=== PATIENT | male | born 1945 | race American Indian/Alaskan Native ===

== ENCOUNTER 2018-12-27 11:05 | Inpatient (IN) | payer MEDICARE, OTHER ==
[2018-12-25 11:12] LABS: Basophils % (Auto) 0.7 % (0.0-1.8); Eosinophils # (Auto) 0.1 K/mm3 (0.0-0.4); Eosinophils % (Auto) 2.3 % (0.0-4.3); Hematocrit 42.6 % (35.5-45.6); Hemoglobin 14.8 gm/dl (11.8-15.2); Lymphocytes # (Auto) 1.2 K/mm3 (1.2-5.4); Lymphocytes % (Auto) 27.5 % (13.4-35.0); Mean Corpuscular HGB Conc 35 % (32-34); Mean Corpuscular Volume 95 fl (84-94); Monocytes # (Auto) 0.4 K/mm3 (0.0-0.8); Monocytes % (Auto) 9.2 % (0.0-7.3); Platelet Count 191 K/mm3 (140-440); Red Blood Count 4.48 M/mm3 (3.65-5.03); Red Cell Distribution Width 15.9 % (13.2-15.2)
--- NOTE | 2018-12-25 11:26 | Anesthesia Consultation ---
Anesthesia Consult and Med Hx Date of service: 12/27/18 - Airway Anesthetic Teeth Evaluation: Good ROM Head & Neck: Adequate Mental/Hyoid Distance: Adequate Mallampati Class: Class II Intubation Access Assessment: Good - Pre-Operative Health Status ASA Pre-Surgery Classification: ASA3 Proposed Anesthetic Plan: General - Pulmonary Hx Smoking: Yes (STOPPED 1980) Hx Respiratory Symptoms: Yes (Hx PE x 2. No complaints now) Hx Sleep Apnea: Yes (DX SLEEP APNEA WITH CPAP USE.) - Cardiovascular System Hx Hypertension: Yes (ON NATURAL MEDS (OTC)) Hx Coronary Artery Disease: No (NST 4 years ago-ok per pt) - Central Nervous System Hx Back Pain: Yes - Endocrine Hx Insulin Dependent Diabetes: Yes (PRE-diabetes) - Hematic Hx Anemia: Yes - Other Systems Hx Substance Use: Yes (CBD DROPS DAILY FOR PAIN CONTROL) Hx Cancer: No
[2018-12-25 11:29] LABS: Alanine Aminotransferase 18 units/L (7-56); Albumin 4.3 g/dL (3.9-5); BUN/Creatinine Ratio 15; Blood Urea Nitrogen 12 mg/dL (9-20); Hemolysis Index 14
[~2018-12-27 11:05] MED LIST: ANCEF/STERILE WATER 2 GM/20 ML IV NR; LACTATED RINGERS 1,000 ML IV SCH
[2018-12-27] MEDS ORDERED: VERSED IV NR (13:00)
[2018-12-27 13:03] LABS: INR 0.96 (0.87-1.13); Partial Thromboplastin Time 26.6 Sec. (24.2-36.6)
[2018-12-27] MEDS ORDERED: NACL 0.9% IR ONE ×2 (13:08)
[2018-12-27] MEDS ORDERED: DIPRIVAN 10 MG/ML IV ONE (13:23)
[2018-12-27] MEDS ORDERED: SUBLIMAZE ONE (13:23)
--- NOTE | 2018-12-27 14:39 | Consultation ---
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 He presented for an outpatient cystoscopy and TURP. Pre-operatively, he was noted with rapid atrial fibrillation prompting a cardiac consultation. Patient denies a history of arrhythmias. He denies prior cardiac history and has not had any recent cardiac evaluation. Patient reports experiencing palpitations, light headedness and feeling flushed on and off for several weeks. He denies chest pain and unusual shortness of breath. There was no syncope. Medications and Allergies Allergies Allergy/AdvReac Type Severity Reaction Status Date / Time Xhadbgy-Djs-Rsb Reductase AdvReac MUSCLE Verified 12/21/18 14:14 Inhibitor WEAKNESS Home Medications Medication Instructions Recorded Confirmed Last Taken Type Cyclobenzaprine [Flexeril 10 MG 10 mg PO PRN PRN 12/21/18 12/27/18 12/13/18 History TAB] Diclofenac 0.1% (Nf) [Voltaren 1 dose TP PRN 12/21/18 12/27/18 12/26/18 History (Nf)] Niacin [Niacin ER] 1,000 mg PO DAILY 12/21/18 12/27/18 12/26/18 History Rivaroxaban [Xarelto] 10 mg PO QDAY 12/21/18 12/27/18 12/21/18 History Furosemide [Lasix TAB] 40 mg PO PRN PRN 12/25/18 12/27/18 12/26/18 History Active Meds: Active Medications Cefazolin Sodium (Ancef/Sterile Water 2 Gm/20 Ml) 2 gm IV PREOP NR Stop: 12/27/18 23:59 Lactated Ringer's (Lactated Ringers) 1,000 mls @ 125 mls/hr IV DIRECT JUAN A Last Admin: 12/27/18 12:00 Dose: 125 mls/hr Documented by: Midazolam HCl (Versed) 2 mg IV PREOP NR Stop: 12/27/18 23:59 Last Admin: 12/27/18 13:13 Dose: 2 mg Documented by: Physical Examination Vital Signs Temp Pulse Resp BP Pulse Ox 97.8 F 62 20 153/72 100 12/25/18 10:59 12/25/18 10:59 12/25/18 10:59 12/25/18 10:59 12/25/18 10:59 General appearance: no acute distress HEENT: Positive: PERRL Neck: Positive: trachea midline Cardiac: Positive: Reg Rate and Rhythm Lungs: Positive: Decreased Breath Sounds Neuro: Positive: Grossly Intact Extremities: Absent: edema Results 12/25/18 10:30 12/25/18 10:30 Coagulation 12/27/18 Range/Units 12:34 PT 13.4 (12.2-14.9) Sec. INR 0.96 (0.87-1.13) APTT 26.6 (24.2-36.6) Sec. Assessment and Plan New onset Afib Hypertension Hx of DVT/PE on xarelto as an outpatient Hx of BPH Recommendations: Admit to telemetry. Amiodarone and Cardizem for management for paroxysmal atrial fibrillation. Resume Xarelto. Check TSH and magnesium. Echocardiogram for LVEF assessment.
--- NOTE | 2018-12-27 15:02 | Event Note ---
Date: 12/27/18 prior to surgery heart moniors revealed abnormal rate per anesthesia, case cancelled & cards consulted
[2018-12-27] MEDS ORDERED: TYLENOL PO PRN (15:21)
[2018-12-27] MEDS ORDERED: ZOFRAN IV PRN (15:21)
[2018-12-27] MEDS ORDERED: SODIUM CHLORIDE FLUSH SYRINGE 10 ML IV PRN (15:21)
[2018-12-27] MEDS ORDERED: PROVENTIL IH PRN (15:21)
[2018-12-27] MEDS ORDERED: CORDARONE 150 MG in D5W 97 ML IV ONE (15:25)
[2018-12-27] MEDS ORDERED: FLEXERIL PO PRN (15:26)
--- NOTE | 2018-12-27 15:29 | History and Physical Report ---
History of Present Illness Chief complaint: Heart beating fast History of present illness: 73 YO Male with HTN, DVT/PE on Therapeutic Anticoagulation, BPH presents for elective Cysto/Turp by Urology service. Pt was undergoing preop evaluation and was found to have new onset Atrial Fib with RVR. Pt seen and evaluated upon arrival to his room. Pt acknowledges intermittent palpitations which are associated with episodes of dizziness. Pt denies fever, chills, CP, NVD, Trauma, Skin rash, hematuria, BRBPR, productive cough, or recent ill contacts. No reported nursing events. Cardiology consulted. Past History Past Medical History: DVT, hypertension, pulmonary embolism Social history: single. denies: smoking, alcohol abuse, prescription drug abuse Family history: hypertension Medications and Allergies Allergies Allergy/AdvReac Type Severity Reaction Status Date / Time Hjubnak-Utc-Ccj Reductase AdvReac MUSCLE Verified 12/21/18 14:14 Inhibitor WEAKNESS Home Medications Medication Instructions Recorded Confirmed Last Taken Type Cyclobenzaprine [Flexeril 10 MG 10 mg PO PRN PRN 12/21/18 12/27/18 12/13/18 History TAB] Diclofenac 0.1% (Nf) [Voltaren 1 dose TP PRN 12/21/18 12/27/18 12/26/18 History (Nf)] Niacin [Niacin ER] 1,000 mg PO DAILY 12/21/18 12/27/18 12/26/18 History Rivaroxaban [Xarelto] 10 mg PO QDAY 12/21/18 12/27/18 12/21/18 History Furosemide [Lasix TAB] 40 mg PO PRN PRN 12/25/18 12/27/18 12/26/18 History Active Meds: Active Medications Acetaminophen (Tylenol) 650 mg PO Q4H PRN PRN Reason: Pain MILD(1-3)/Fever >100.5/SORIA Albuterol (Proventil) 2.5 mg IH Q4HRT PRN PRN Reason: Shortness Of Breath Amiodarone HCl (Cordarone) 200 mg PO BID JUAN A Cefazolin Sodium (Ancef/Sterile Water 2 Gm/20 Ml) 2 gm IV PREOP NR Stop: 12/27/18 23:59 Cyclobenzaprine HCl (Flexeril) 10 mg PO PRN PRN PRN Reason: Muscle Spasm Diltiazem HCl (Cardizem) 30 mg PO Q6HR [facility] Lactated Ringer's (Lactated Ringers) 1,000 mls @ 125 mls/hr IV DIRECT JUAN A Last Admin: 12/27/18 12:00 Dose: 125 mls/hr Documented by: Amiodarone HCl 150 mg/ (Dextrose) 100 mls @ 600 mls/hr IV ONCE ONE Stop: 12/27/18 15:34 Midazolam HCl (Versed) 2 mg IV PREOP NR Stop: 12/27/18 23:59 Last Admin: 12/27/18 13:13 Dose: 2 mg Documented by: Miscellaneous Medication (Diclofenac 0.1% (Nf)) 1 dose TP PRN JUAN A Miscellaneous Medication (Niacin [Niacin Er]) 1,000 mg PO DAILY [facility] Ondansetron HCl (Zofran) 4 mg IV Q8H PRN PRN Reason: Nausea And Vomiting Rivaroxaban (Xarelto) 10 mg PO QDAY JUAN A; Protocol Rivaroxaban (Xarelto) 10 mg PO QDAY JUAN A; Protocol Sodium Chloride (Sodium Chloride Flush Syringe 10 Ml) 10 ml IV BID JUAN A Sodium Chloride (Sodium Chloride Flush Syringe 10 Ml) 10 ml IV PRN PRN PRN Reason: LINE FLUSH Review of Systems Constitutional: no weight loss, no weight gain, no fever, no chills Ears, nose, mouth and throat: no ear pain, no ear discharge, no tinnitis, no decreased hearing, no nose pain Cardiovascular: palpitations, rapid/irregular heart beat, no chest pain, no orthopnea, no edema, no syncope Respiratory: no cough, no cough with sputum, no excessive sputum, no hemoptysis Gastrointestinal: no abdominal pain, no nausea, no vomiting, no diarrhea Genitourinary Male: no hematuria, no flank pain, no discharge, no urinary frequency, no urinary hesitancy Rectal: no pain, no incontinence, no bleeding Musculoskeletal: no neck stiffness, no neck pain, no shooting arm pain, no arm numbness/tingling Integumentary: no rash, no pruritis, no redness, no sores, no wounds Neurological: no head injury, no transient paralysis, no paralysis, no weakness, no parathesias, no numbness Psychiatric: no anxiety, no memory loss, no change in sleep habits, no sleep disturbances, no insomnia, no hypersomnia Endocrine: no cold intolerance, no heat intolerance, no polyphagia, no polydipsia, no polyuria Hematologic/Lymphatic: no easy bruising, no easy bleeding Allergic/Immunologic: no urticaria, no allergic rhinitis, no wheezing Exam - Constitutional Vitals: Temp Pulse Resp BP Pulse Ox 98.6 F 68 20 148/82 100 12/27/18 11:28 12/27/18 11:28 12/27/18 11:28 12/27/18 11:28 12/27/18 11:28 General appearance: Present: mild distress - EENT Eyes: Present: PERRL ENT: hearing intact, clear oral mucosa - Neck Neck: Present: supple, normal ROM - Respiratory Respiratory effort: normal Respiratory: bilateral: CTA - Cardiovascular Heart Sounds: Present: S1 & S2. Absent: rub, click - Extremities Extremities: pulses symmetrical, No edema Peripheral Pulses: within normal limits - Abdominal General gastrointestinal: Present: soft, non-tender, non-distended, normal bowel sounds Male genitourinary: Present: normal - Integumentary Integumentary: Present: clear, warm, dry - Musculoskeletal Musculoskeletal: gait normal, strength equal bilaterally - Psychiatric Psychiatric: appropriate mood/affect, intact judgment & insight - Neurologic Neurologic: CNII-XII intact, moves all extremities Results - Labs CBC & Chem 7: 12/27/18 17:41 12/27/18 17:41 Assessment and Plan - Patient Problems (1) Atrial fibrillation with rapid ventricular response Current Visit: Yes Status: Acute Plan to address problem: Admit to telemetry, cardiology consulted in ED, continue therapeutic anticoagulation, amiodarone bolus, cardizem TID as per cardiology request, thyroid panel, magnesium level, bmp. (2) Diastolic CHF Current Visit: Yes Status: Acute Qualifiers: Heart failure chronicity: acute Qualified Code(s): I50.31 - Acute diastolic (congestive) heart failure Plan to address problem: Admit to telemetry, thyroid panel, magnesium level, strict I/O, daily weight, Echo, cardiology consulted in ED, afterload reduction. (3) HTN (hypertension) Current Visit: Yes Status: Acute Qualifiers: Hypertension type: essential hypertension Qualified Code(s): I10 - Essential (primary) hypertension Plan to address problem: Monitor BP q shift, continue medical management. (4) History of DVT (deep vein thrombosis) Current Visit: Yes Status: Acute Plan to address problem: continue therapeutic anticoagulation. (5) DVT prophylaxis Current Visit: Yes Status: Acute Plan to address problem: SCD to BLE while in bed, continue therapeutic anticoagulation.
[2018-12-27] MEDS ORDERED: DICLOFENAC 0.1% TP SCH (15:30)
[2018-12-27 18:00] LABS: Basophils % (Auto) 0.4 % (0.0-1.8); Eosinophils # (Auto) 0.1 K/mm3 (0.0-0.4); Hematocrit 39.9 % (35.5-45.6); Hemoglobin 13.6 gm/dl (11.8-15.2); Lymphocytes # (Auto) 1.3 K/mm3 (1.2-5.4); Lymphocytes % (Auto) 27.6 % (13.4-35.0); Mean Corpuscular HGB Conc 34 % (32-34); Mean Corpuscular Volume 96 fl (84-94); Monocytes # (Auto) 0.4 K/mm3 (0.0-0.8); Monocytes % (Auto) 9.5 % (0.0-7.3); Platelet Count 171 K/mm3 (140-440); Red Blood Count 4.17 M/mm3 (3.65-5.03); Red Cell Distribution Width 15.4 % (13.2-15.2)
[2018-12-27] MEDS: CARDIZEM PO SCH ×3 (18:25→23:50)
[2018-12-27 18:38] LABS: Alanine Aminotransferase 17 units/L (7-56); Albumin 3.8 g/dL (3.9-5); BUN/Creatinine Ratio 14; Blood Urea Nitrogen 10 mg/dL (9-20); Hemolysis Index 4
[2018-12-27 19:11] LABS: Free T4 (Free Thyroxine) 1.05 ng/dL (0.76-1.46)
[2018-12-27] MEDS: CORDARONE PO SCH (22:30)
[2018-12-27] MEDS: SODIUM CHLORIDE FLUSH SYRINGE 10 ML IV SCH (22:35)
[2018-12-28] MEDS: CARDIZEM PO SCH (06:10)
[2018-12-28 08:25] LABS: BUN/Creatinine Ratio 13; Blood Urea Nitrogen 9 mg/dL (9-20); Hemolysis Index 10
--- NOTE | 2018-12-28 09:42 | Progress Note ---
Assessment and Plan New onset Afib currently in sinus rhythm; on amiodarone and diltiazem normal TSH Hypertension Hx of DVT/PE on xarelto as an outpatient Hx of BPH Echocardiogram results pending Subjective Date of service: 12/28/18 Interval history: Sinus bradycardia on telemetry. Periods of sinus bradycardia overnight. Patient remained asymptomatic. Objective Vital Signs Temp Pulse Resp BP Pulse Ox 12/28/18 07:46 97.8 F 62 20 127/82 98 12/28/18 06:10 54 L 12/28/18 04:38 97.6 F 50 L 20 130/54 99 12/28/18 04:00 50 L 12/27/18 23:50 55 L 116/50 12/27/18 23:43 97.9 F 54 L 20 116/52 98 12/27/18 22:00 99 12/27/18 20:34 55 L 12/27/18 20:16 98.1 F 55 L 20 116/50 99 12/27/18 17:00 98.1 F 75 16 133/81 99 12/27/18 15:00 74 16 123/66 99 12/27/18 14:30 69 16 128/73 99 12/27/18 14:00 98.0 F 101 H 17 134/70 97 12/27/18 11:28 98.6 F 68 20 148/82 100 12/27/18 11:25 98.6 F 68 20 148/82 100 - Physical Examination General: No Apparent Distress HEENT: Positive: PERRL Neck: Positive: trachea midline Cardiac: Positive: Reg Rate and Rhythm Neuro: Positive: Grossly Intact Extremities: Absent: edema - Labs and Meds Cardiac Enzymes 12/27/18 Range/Units 17:41 AST 17 (5-40) units/L Coagulation 12/27/18 Range/Units 12:34 PT 13.4 (12.2-14.9) Sec. INR 0.96 (0.87-1.13) APTT 26.6 (24.2-36.6) Sec. CBC 12/27/18 Range/Units 17:41 WBC 4.6 (4.5-11.0) K/mm3 RBC 4.17 (3.65-5.03) M/mm3 Hgb 13.6 (11.8-15.2) gm/dl Hct 39.9 (35.5-45.6) % Plt Count 171 (140-440) K/mm3 Lymph # 1.3 (1.2-5.4) K/mm3 Maury # 0.4 (0.0-0.8) K/mm3 Eos # 0.1 (0.0-0.4) K/mm3 Baso # 0.0 (0.0-0.1) K/mm3 Comprehensive Metabolic Panel 12/27/18 12/28/18 Range/Units 17:41 06:58 Sodium 145 142 (137-145) mmol/L Potassium 4.6 4.2 (3.6-5.0) mmol/L Chloride 107.5 H 106.3 (98-107) mmol/L Carbon Dioxide 26 27 (22-30) mmol/L BUN 10 9 (9-20) mg/dL Creatinine 0.7 L 0.7 L (0.8-1.5) mg/dL Glucose 108 H 99 (75-100) mg/dL Calcium 10.0 9.0 (8.4-10.2) mg/dL AST 17 (5-40) units/L ALT 17 (7-56) units/L Alkaline Phosphatase 70 (35-129) units/L Total Protein 6.7 (6.3-8.2) g/dL Albumin 3.8 L (3.9-5) g/dL
[2018-12-28] MEDS: CORDARONE PO SCH (09:50)
[2018-12-28] MEDS: SODIUM CHLORIDE FLUSH SYRINGE 10 ML IV SCH (09:54)
[2018-12-28] MEDS ORDERED: NIACIN 1000 MG PO SCH (10:00)
[2018-12-28] MEDS ORDERED: XARELTO PO SCH ×2 (10:00)
[2018-12-28] MEDS ORDERED: NIASPAN ER PO SCH (10:00)
[2018-12-28] MEDS ORDERED: COLACE PO SCH (13:00)
[2018-12-28] MEDS ORDERED: MIRALAX 3350 PO SCH (13:00)
--- NOTE | 2018-12-28 13:32 | Discharge Summary ---
Providers - Providers Date of Admission: 12/27/18 15:21 Date of discharge: 12/28/18 Attending physician: TIFFANY LAUREN 12/27/18 15:28 Consult to Cardiology [CONS] Routine Consulting Provider: BLANCO BENNETT Reason For Exam: chf/a fib Primary care physician: GERSON SANTILLAN Hospitalization Reason for admission: palpitation Pertinent studies: 2d EF 55-60% Hospital course: Brief history: 73 YO Male with HTN, DVT/PE on Therapeutic Anticoagulation, BPH presents for elective Cysto/Turp by Urology service. Pt was undergoing preop evaluation and was found to have new onset Atrial Fib with RVR. Pt seen and evaluated upon arrival to his room. Pt acknowledges intermittent palpitations which are associated with episodes of dizziness. Cardiology consulted in the ER, he was placed on Cardizem and amiodarone, and admitted for further evaluation and management. Discharge diagnosis and management New onset Afib - Placed on Cardizem and amiodarone drip - Now converted to normal sinus rhythm, patient will be discharged with amiodarone po and will continue Xarelto per cardiology recommendation - He'll follow-up with cardiology as outpatient Hypertension, currently stable on current medications Hx of DVT/PE - on xarelto as an outpatient Hx of BPH - Plan for discharge as an outpatient, has outpatient urologic follow-up- Hospitalists physical: GENERAL: well-developed and well-nourished male lying on bed appeared to be in no discomfort. HEENT: Normocephalic. Atraumatic. No conjunctival congestion or icterus. Patient has moist mucous membranes. NECK: Supple. Trachea midline. CHEST/LUNGS: Clear to auscultated bilaterally, breathing nonlabored. No wheezes crackles or rhonchi. HEART/CARDIOVASCULAR: Regular in rate and rhythm. S1 and S2 positive. ABDOMEN: Abdomen is soft, nontender. Patient has normal bowel sounds. SKIN: There is no rash. Warm and dry. NEURO: No focal motor deficit. Follows command. MUSCULOSKELETAL: No joint effusion or tenderness. EXTRIMITY: No edema, no cyanosis or clubbing. PSYCH: Cooperative. Disposition: - TO HOME OR SELFCARE Time spent for discharge: 35 minutes Core Measure Documentation - Palliative Care Palliative Care/ Comfort Measures: Not Applicable - Core Measures Any of the following diagnoses?: none Exam - Constitutional Vitals: Temp Pulse Resp BP Pulse Ox 97.8 F 79 17 127/82 98 12/28/18 07:46 12/28/18 11:30 12/28/18 10:00 12/28/18 07:46 12/28/18 10:00 Plan Activity: advance as tolerated Weight Bearing Status: Non-Weight Bearing Diet: low fat, low salt Follow up with: GERSON SANTILLAN JR, MD [Primary Care Provider] - 7 Days BLANCO BENNETT MD [Staff Physician] - 7 Days Prescriptions: Amiodarone [Cordarone 200 MG TAB] 200 mg PO BID #60 tablet Rivaroxaban [Xarelto] 10 mg PO QDAY #30 tablet
[2018-12-28 16:47] VITALS: BP 120/84
[2018-12-29] MEDS ORDERED: CORDARONE PO SCH (10:00)
== END 2018-12-28 16:47 | disposition home or self-care (01) | DRG 308 ==
LOC: OR 11:05 → 4A 15:21
PROVIDERS: ADMIT Internal Medicine; ATTEND Internal Medicine
DX: I48.91 Unspecified atrial fibrillation (principal); I50.31 Acute diastolic (congestive) heart failure; I47.1 Supraventricular tachycardia; N40.0 Benign prostatic hyperplasia without lower urinary tract symptoms; R31.0 Gross hematuria; I11.0 Hypertensive heart disease with heart failure; Z87.891 Personal history of nicotine dependence; Z86.718 Personal history of other venous thrombosis and embolism; Z79.01 Long term (current) use of anticoagulants; Z86.711 Personal history of pulmonary embolism; Z88.8 Allergy status to other drugs, medicaments and biological substances; Z82.49 Family history of ischemic heart disease and other diseases of the circulatory system
CPT/HCPCS: 36415; 80048; 80053; 82962; 83735; 83880; 84439; 84443; 85025; 85610; 85730; 86850; 86900; 86901; 93005; 93010; 93306; G0378; A4217; J0282; J0690; J2250; J2704; J3010; J7120

== ENCOUNTER 2019-05-25 15:43 | Outpatient (CLI) | payer MEDICARE, OTHER ==
--- NOTE | 2019-05-25 16:31 | XRay Report ---
ABDOMEN 1 VIEW(S) INDICATION / CLINICAL INFORMATION: CHECK FOR IVC FILTER. COMPARISON: None available. FINDINGS: TUBES / LINES: The superior tip of the IVC filter is at the level of the superior margin of the L2 ve rtebral body. BOWEL GAS PATTERN/EXTRALUMINAL GAS: No significant abnormality. No pneumatosis or secondary signs of free air. Moderate volume of stool in the colon. ADDITIONAL FINDINGS: No significant additional findings. IMPRESSION: 1. IVC filter superior tip projects over the superior aspect of the L2 vertebral body. Signer Name: David Grigsby MD Signed: 05/25/2019 4:26 PM Workstation Name: [id number]
== END 2019-05-25 15:44 | disposition home or self-care (01) ==
LOC: XRAY 15:43
PROVIDERS: ATTEND Nurse Practitioner Family
DX: I80.293 Phlebitis and thrombophlebitis of other deep vessels of lower extremity, bilateral (principal); I87.1 Compression of vein; I87.2 Venous insufficiency (chronic) (peripheral); I87.323 Chronic venous hypertension (idiopathic) with inflammation of bilateral lower extremity; K21.9 Gastro-esophageal reflux disease without esophagitis; M19.90 Unspecified osteoarthritis, unspecified site; Z87.891 Personal history of nicotine dependence; Z86.711 Personal history of pulmonary embolism
CPT/HCPCS: 74018

== ENCOUNTER 2019-06-25 08:53 | Observation (INO) | payer MEDICARE, OTHER ==
[2019-06-22 11:19] LABS: Basophils # (Auto) 0.1 K/mm3 (0.0-0.1); Basophils % (Auto) 1.4 % (0.0-1.8); Eosinophils # (Auto) 0.1 K/mm3 (0.0-0.4); Eosinophils % (Auto) 2.7 % (0.0-4.3); Hematocrit 36.6 % (35.5-45.6); Hemoglobin 12.4 gm/dl (11.8-15.2); Lymphocytes # (Auto) 1.2 K/mm3 (1.2-5.4); Lymphocytes % (Auto) 31.5 % (13.4-35.0); Mean Corpuscular HGB Conc 34 % (32-34); Mean Corpuscular Volume 97 fl (84-94); Monocytes # (Auto) 0.5 K/mm3 (0.0-0.8); Monocytes % (Auto) 12.5 % (0.0-7.3); Platelet Count 185 K/mm3 (140-440); Red Blood Count 3.77 M/mm3 (3.65-5.03); Red Cell Distribution Width 16.3 % (13.2-15.2)
--- NOTE | 2019-06-22 11:22 | Anesthesia Consultation ---
Anesthesia Consult and Med Hx Date of service: 06/25/19 - Airway Anesthetic Teeth Evaluation: Good ROM Head & Neck: Adequate Mental/Hyoid Distance: Adequate Mallampati Class: Class II Intubation Access Assessment: Probably Good - Pre-Operative Health Status ASA Pre-Surgery Classification: ASA3 Proposed Anesthetic Plan: General - Pulmonary Hx Smoking: Yes (STOPPED 1980) Hx Respiratory Symptoms: Yes (Hx PE x 2. No complaints now) Hx Sleep Apnea: Yes (DX SLEEP APNEA WITH CPAP USE.) - Cardiovascular System Hx Hypertension: Yes (ON NATURAL MEDS (OTC)) Hx Coronary Artery Disease: No ([id number] NST) Hx Cardia Arrhythmia: Yes (A-Fib) - Central Nervous System Hx Back Pain: Yes Hx Psychiatric Problems: Yes (Anxiety/Depression) - Gastrointestinal Hx Gastroesophageal Reflux Disease: Yes - Endocrine Hx Insulin Dependent Diabetes: Yes (PRE-diabetes) - Hematic Hx Anemia: Yes - Other Systems Hx Substance Use: Yes (CBD DROPS DAILY FOR PAIN CONTROL) Hx Cancer: No - Additional Comments Anesthesia Medical History Comments: Was here in December for TURP and got cancelled because of new onset A-fib. +Cardiac clearance
[2019-06-22 11:43] LABS: Alanine Aminotransferase 19 units/L (7-56); Albumin 3.9 g/dL (3.9-5); BUN/Creatinine Ratio 18; Blood Urea Nitrogen 14 mg/dL (9-20); Calcium 9.8 mg/dL (8.4-10.2); Hemolysis Index 17
[2019-06-25] MEDS ORDERED: ceFAZolin/STERILE WATER 2 GM/20 ML SYRINGE IV NR (09:43)
[2019-06-25 10:05] LABS: INR 0.91 (0.87-1.13)
[2019-06-25 10:14] LABS: Partial Thromboplastin Time 25.2 Sec. (24.2-36.6)
[2019-06-25] MEDS ORDERED: LACTATED RINGERS 1,000 ML ONE (10:22)
[2019-06-25] MEDS ORDERED: LACTATED RINGERS 1,000 ML IV SCH (10:27)
[2019-06-25] MEDS ORDERED: fentaNYL 100 MCG/2 ML INJ ONE (10:46)
[2019-06-25] MEDS ORDERED: LIDOCAINE MPF (2%) 20 MG/1 ML VIAL 5 ML ONE (10:46)
[2019-06-25] MEDS ORDERED: PROPOFOL 200 MG/20 ML VIAL IV ONE (10:47)
[2019-06-25] MEDS ORDERED: SODIUM CHLORIDE 0.9% IRRIG SOLN 3000 ML IR ONE (12:00)
[2019-06-25] MEDS ORDERED: NALOXONE 0.4 MG/1 ML INJ IV PRN (12:19)
[2019-06-25] MEDS ORDERED: oxyCODONE /ACETAMINOPHEN 5-325MG TAB PO PRN (12:19)
[2019-06-25] MEDS ORDERED: ZOLPIDEM 5 MG TAB PO PRN (12:19)
[2019-06-25] MEDS ORDERED: ONDANSETRON 4 MG/2 ML INJ IV PRN (12:19)
--- NOTE | 2019-06-25 12:19 | Short Stay Summary ---
Short Stay Documentation Date of service: 06/25/19 - History H&P: obtained from office - Allergies and Medications Current Medications: Allergies Qvxqrhn-Ekk-Dou Reductase Inhibitor Adverse Reaction (Verified 12/21/18 14:14) MUSCLE WEAKNESS TUMERIC Allergy (Uncoded 06/22/19 12:33) Shortness of Breath Home Medications Medication Instructions Recorded Confirmed Last Taken Type Cyclobenzaprine [Flexeril 10 MG 10 mg PO PRN PRN 12/21/18 06/20/19 06/24/19 09:00 History TAB] Diclofenac 0.1% (Nf) [Voltaren 1 dose TP PRN PRN 12/21/18 06/20/19 06/24/19 09:00 History (Nf)] Niacin [Niacin ER] 1,000 mg PO DAILY 12/21/18 06/20/19 06/24/19 09:00 History Furosemide [Lasix TAB] 40 mg PO DAILY 12/25/18 06/25/19 06/25/19 06:00 History Rivaroxaban [Xarelto] 10 mg PO QDAY #30 tablet 12/28/18 06/25/19 06/24/19 09:00 Rx Flecainide [Tambocor] 50 mg PO Q12H 06/22/19 06/25/19 06/25/19 06:00 History Metoprolol [Lopressor TAB] 50 mg PO BID 06/22/19 06/25/19 06/25/19 06:00 History Active Medications Cefazolin Sodium (Ancef/Sterile Water 2 Gm/20 Ml) 2 gm IV PREOP NR Stop: 06/25/19 16:00 Lactated Ringer's (Lactated Ringers) 1,000 mls @ 75 mls/hr IV DIRECT JUAN A Last Admin: 06/25/19 10:30 Dose: 75 mls/hr Documented by: - Brief post op/procedure progress note Date of procedure: 06/25/19 Pre-op diagnosis: bph Post-op diagnosis: same Procedure: cysto, rpg, TURP Anesthesia: GETA Surgeon: JUANI VERA Estimated blood loss: minimal Pathology: list (CHIPS) Specimen disposition: to lab Condition: stable - Hospital course Hospital course: NORCO & MACROBID ON CHART saldivar pink urine dc home with saldivar - Disposition Condition at discharge: Stable Disposition: DC-01 TO HOME OR SELFCARE Short Stay Discharge Plan Follow up with: GERSON SANTILLAN JR, MD [Primary Care Provider] - 7 Days
[2019-06-25] MEDS ORDERED: CYCLOBENZAPRINE 10 MG TAB PO PRN (12:23)
--- NOTE | 2019-06-25 12:49 | Operative Report ---
PREOPERATIVE DIAGNOSIS: Benign prostatic hypertrophy. POSTOPERATIVE DIAGNOSIS: Benign prostatic hypertrophy. PROCEDURE: Cystoscopy, bilateral retrograde pyelograms, transurethral resection of the prostate. SURGEON: Amado Randhawa MD ANESTHESIA: General. ESTIMATED BLOOD LOSS: Minimal. FLUIDS: Crystalloid. COMPLICATIONS: No complications. INDICATIONS: This patient is a 74-year-old gentleman with history of enlarged prostate as well as degenerative joint disease due to get hip replacement by Dr. Rachel, however, on CT of the abdomen and pelvis to assess mass. Cystoscopy revealed BPH. He had previous TURP in 2010. He has had some regrowth. He is on blood thinners. He also sees Dr. Hunter. He was cleared by Dr. Gabriel and he presents now for surgical intervention. DESCRIPTION OF PROCEDURE: The patient was taken to the operative suite, placed in a supine position. After adequate general anesthesia, he was placed in a dorsal lithotomy position, prepped and draped in a sterile fashion. Pancystourethroscopy was performed with 22-Albanian Storz cystoscope, no urethral abnormalities. His prostate displayed trilobar obstruction with a moderate-sized median lobe, which would suggest a mass in the bladder. No tumors or stones were noted. Both ureteral orifices in normal position. Bilateral retrograde pyelograms were obtained with an 8-Albanian Jodi catheter and 8 mL of contrast. No filling defects or obstruction. Next, using a yellow loop, transurethral resection of the prostate was performed in a systematic fashion, taken on the right and left lateral lobes respectively as well as the median lobe. Adequate hemostasis was achieved. An Ellik evacuator was used to evacuate out the chips. The button was used for adequate hemostasis as well as some vaporization. A 22-Albanian 3-way catheter, 40 mL in the balloon was left and irrigated well, no clots. Rectal exam was benign. He tolerated the procedure well and was extubated and taken to recovery room in stable condition. JOB# [id number] ELAN/RHEA
[2019-06-25] MEDS ORDERED: SODIUM CHLORIDE 0.9% 1000 ML 1,000 ML IV SCH (13:00)
[2019-06-25] MEDS ORDERED: SODIUM CHLORIDE 0.9% 1000 ML 1,000 ML ONE (13:29)
[2019-06-25] MEDS: HYDROcodone/ACETAMINOPHEN 5-325 MG TAB PO PRN (15:08)
--- NOTE | 2019-06-25 15:51 | Fluoroscopy Report ---
FLUOROSCOPY RETROGRADE UROGRAPHY HISTORY: Enlarged prostate gland FINDINGS: 9 seconds of fluoroscopy time was provided by radiology during retrograde urography by the urologist. 5 fluoroscopic images are presented. The images demonstrate normal opacification of the re nal collecting systems bilaterally. No filling defect or abnormal dilatation is identified. Signer Name: Omar Moreno Jr, MD Signed: 06/25/2019 3:47 PM Workstation Name: [id number]
[2019-06-25] MEDS: FLECAINIDE 100 MG TAB PO SCH ×2 (18:30→21:43)
[2019-06-25] MEDS: ceFAZolin/NS 1 GM/50 ML 1 GM/50 ML BAG IV SCH (19:12)
--- NOTE | 2019-06-25 20:54 | Post Anesthesia Evaluation ---
- Post Anesthesia Evaluation Patient Participated: Yes Airway Patent: Yes Stable Respiratory Function: Yes Nausea/Vomiting: No Temp > 96.8F: Yes Pain Manageable: Yes Adequeate Hydration: Yes Anesthesia Complications: No Block Receding Appropriately: Not Applicable Patient on Ventilator: No
[2019-06-25] MEDS: SODIUM CHLORIDE 0.9% IRRIG SOLN 2000 ML IR SCH ×2 (21:57→21:59)
[2019-06-25] MEDS ORDERED: NIACIN ER 500 MG TAB PO SCH (22:00)
[2019-06-25] MEDS: METOPROLOL TARTRATE 50 MG TAB PO SCH (22:02)
--- NOTE | 2019-06-26 00:11 | Consultation ---
History of Present Illness - Reason for Consult Consult date: 06/25/19 Medical management Requesting physician: JUANI VERA - History of Present Illness S/p Cysto/RPG/TURP today. Post op patient doing well.No SOB or Chest pain. Past History Past Medical History: arrhythmia, heart failure, hypertension, other (Anticoagulation) Past Surgical History: TURP Social history: lives with family, full code Family history: hypertension Medications and Allergies Allergies Allergy/AdvReac Type Severity Reaction Status Date / Time Axhkvac-Ggn-Fwr Reductase AdvReac MUSCLE Verified 12/21/18 14:14 Inhibitor WEAKNESS TUMERIC Allergy Shortness Uncoded 06/22/19 12:33 of Breath Home Medications Medication Instructions Recorded Confirmed Last Taken Type Cyclobenzaprine [Flexeril 10 MG 10 mg PO PRN PRN 12/21/18 06/20/19 06/24/19 09:00 History TAB] Diclofenac 0.1% (Nf) [Voltaren 1 dose TP PRN PRN 12/21/18 06/20/19 06/24/19 09:00 History (Nf)] Niacin [Niacin ER] 1,000 mg PO DAILY 12/21/18 06/20/19 06/24/19 09:00 History Furosemide [Lasix TAB] 40 mg PO DAILY 12/25/18 06/25/19 06/25/19 06:00 History Rivaroxaban [Xarelto] 10 mg PO QDAY #30 tablet 12/28/18 06/25/19 06/24/19 09:00 Rx Flecainide [Tambocor] 50 mg PO Q12H 06/22/19 06/25/19 06/25/19 06:00 History Metoprolol [Lopressor TAB] 50 mg PO BID 06/22/19 06/25/19 06/25/19 06:00 History Active Meds: Active Medications Acetaminophen/Hydrocodone Bitart ([place] 5/325) 2 each PO Q4H PRN PRN Reason: Pain, Moderate (4-6) Last Admin: 06/25/19 15:08 Dose: 2 each Documented by: Cyclobenzaprine HCl (Flexeril) 10 mg PO PRN PRN PRN Reason: Muscle Spasm Flecainide Acetate (Tambocor) 50 mg PO Q12HR JUAN A Last Admin: 06/25/19 21:43 Dose: 50 mg Documented by: Furosemide (Lasix) 40 mg PO DAILY JUAN A Lactated Ringer's (Lactated Ringers) 1,000 mls @ 75 mls/hr IV DIRECT JUAN A Last Admin: 06/25/19 10:30 Dose: 75 mls/hr Documented by: Sodium Chloride (Nacl 0.9% 1000 Ml) 1,000 mls @ 100 mls/hr IV DIRECT JUAN A Cefazolin Sodium (Ancef/Ns 1 Gm/50 Ml) 1 gm in 50 mls @ 100 mls/hr IV Q8H JUAN A; Protocol Stop: 06/26/19 02:29 Last Admin: 06/25/19 19:12 Dose: 100 mls/hr Documented by: Metoprolol Tartrate (Metoprolol) 50 mg PO BID JUAN A Last Admin: 06/25/19 22:02 Dose: Not Given Documented by: Naloxone HCl (Naloxone) 0.1 mg IV Q2MIN PRN PRN Reason: Res Rate </= 8 or 02 SAT < 92% Niacin (Niaspan Er) 1,000 mg PO HS [facility] Last Admin: 06/25/19 21:43 Dose: 1,000 mg Documented by: Ondansetron HCl (Zofran) 4 mg IV Q8H PRN PRN Reason: Nausea And Vomiting Oxycodone/Acetaminophen (Percocet 5/325) 2 tab PO Q6H PRN PRN Reason: Pain, Moderate (4-6) Last Admin: 06/25/19 20:13 Dose: 2 tab Documented by: Sodium Chloride (Nacl 0.9%) 2,000 ml IR DIRECT JUANA Last Admin: 06/25/19 21:59 Dose: 2,000 ml Documented by: Zolpidem Tartrate (Ambien) 5 mg PO QHS PRN PRN Reason: Sleep Review of Systems All systems: negative Exam - Constitutional Vitals: Temp Pulse Resp BP Pulse Ox 97.6 F 51 L 19 108/48 98 06/25/19 23:29 06/25/19 23:29 06/25/19 23:29 06/25/19 23:29 06/25/19 23:29 General appearance: Present: no acute distress, well-nourished - EENT Eyes: Present: PERRL ENT: hearing intact, clear oral mucosa - Neck Neck: Present: supple, normal ROM - Respiratory Respiratory effort: normal Respiratory: bilateral: CTA - Cardiovascular Heart rate: 78 Rhythm: regular Heart Sounds: Present: S1 & S2. Absent: rub, click - Extremities Extremities: no ischemia, pulses intact, pulses symmetrical, No edema Peripheral Pulses: within normal limits - Abdominal General gastrointestinal: Present: soft, non-tender, non-distended, normal bowel sounds Male genitourinary: Present: normal - Rectal Rectal Exam: deferred - Integumentary Integumentary: Present: clear, warm, dry - Musculoskeletal Musculoskeletal: gait normal, strength equal bilaterally - Psychiatric Psychiatric: appropriate mood/affect, intact judgment & insight - Neurologic Neurologic: CNII-XII intact, moves all extremities - Allied Health Allied health notes reviewed: nursing, case management Results - Labs CBC & Chem 7: 06/22/19 10:30 06/22/19 10:30 Assessment and Plan - Patient Problems (1) S/P TURP Current Visit: Yes Status: Acute Plan to address problem: Post op doing well. 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
[2019-06-26] MEDS: SODIUM CHLORIDE 0.9% IRRIG SOLN 2000 ML IR SCH ×4 (02:56→07:22)
[2019-06-26] MEDS: ceFAZolin/NS 1 GM/50 ML 1 GM/50 ML BAG IV SCH (02:57)
[2019-06-26] MEDS: HYDROcodone/ACETAMINOPHEN 5-325 MG TAB PO PRN (08:37)
[2019-06-26] MEDS: FUROSEMIDE 40 MG TAB PO SCH ×2 (08:38→10:00)
[2019-06-26] MEDS: FLECAINIDE 100 MG TAB PO SCH ×2 (08:38→10:30)
[2019-06-26] MEDS: METOPROLOL TARTRATE 50 MG TAB PO SCH ×2 (08:48→10:00)
[2019-06-26 08:49] VITALS: BP 134/60
[2019-06-26 09:56] LABS: Basophils % (Auto) 0.4 % (0.0-1.8); Eosinophils # (Auto) 0.2 K/mm3 (0.0-0.4); Eosinophils % (Auto) 2.1 % (0.0-4.3); Hematocrit 35.8 % (35.5-45.6); Hemoglobin 11.9 gm/dl (11.8-15.2); Lymphocytes # (Auto) 1.7 K/mm3 (1.2-5.4); Lymphocytes % (Auto) 19.7 % (13.4-35.0); Mean Corpuscular HGB Conc 33 % (32-34); Mean Corpuscular Volume 98 fl (84-94); Monocytes # (Auto) 0.8 K/mm3 (0.0-0.8); Monocytes % (Auto) 9.7 % (0.0-7.3); Platelet Count 162 K/mm3 (140-440); Red Blood Count 3.64 M/mm3 (3.65-5.03); Red Cell Distribution Width 16.4 % (13.2-15.2)
[2019-06-26] MEDS ORDERED: NIACIN 1000 MG PO SCH (10:00)
[2019-06-26 10:19] LABS: BUN/Creatinine Ratio 17; Blood Urea Nitrogen 12 mg/dL (9-20); Hemolysis Index 3
--- NOTE | 2019-06-26 13:11 | Progress Note ---
Assessment and Plan (1) S/P TURP Current Visit: Yes Status: Acute Plan to address problem: Post op doing well. 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 Plan to address problem: On Flecainide (3) Diastolic CHF Current Visit: No Status: Chronic Qualifiers: Heart failure chronicity: acute Qualified Code(s): I50.31 - Acute diastolic (congestive) heart failure Plan to address problem: Cont Furosemide (4) HTN (hypertension) Current Visit: No Status: Chronic Qualifiers: Hypertension type: essential hypertension Qualified Code(s): I10 - Essential (primary) hypertension Plan to address problem: Cont antihypertensives (5) DVT prophylaxis Current Visit: No Status: Acute Plan to address problem: On SCD's and GI prophylaxis Subjective Date of service: 06/26/19 Objective - Constitutional Vitals: Vital Signs - 12hr 06/26/19 06/26/19 06/26/19 03:40 08:48 09:10 Temperature 97.4 F L 97.3 F L Pulse Rate 49 L 55 L 55 L Respiratory 19 16 Rate Blood Pressure 109/47 134/60 Blood Pressure 134/60 [Right] O2 Sat by Pulse 98 99 Oximetry - Labs CBC & Chem 7: 06/26/19 08:48 06/26/19 08:48 Labs: Abnormal lab results 06/26/19 06/26/19 Range/Units 08:48 08:48 RBC 3.64 L (3.65-5.03) M/mm3 MCV 98 H (84-94) fl MCH 33 H (28-32) pg RDW 16.4 H (13.2-15.2) % [place] % (Auto) 9.7 H (0.0-7.3) % Creatinine 0.7 L (0.8-1.5) mg/dL Glucose 116 H (75-100) mg/dL
--- NOTE | 2019-06-26 13:13 | Event Note ---
Date: 06/26/19 Came to see patient but he was already discharged by Primary.
== END 2019-06-26 12:48 | disposition home or self-care (01) ==
LOC: OR 08:53 → 3B-SURG 12:19
PROVIDERS: ADMIT Urology; ATTEND Urology
DX: N40.1 Benign prostatic hyperplasia with lower urinary tract symptoms (principal); I11.0 Hypertensive heart disease with heart failure; I50.9 Heart failure, unspecified; I49.9 Cardiac arrhythmia, unspecified; Z90.49 Acquired absence of other specified parts of digestive tract; Z87.891 Personal history of nicotine dependence
CPT/HCPCS: 36415; 52601; 74420; 80048; 80053; 82962; 85025; 85610; 85730; 86850; 86900; 86901; 88305; 94760; 96365; 96366; A4217; G0378; J0690; J2704; J3010; J7030; J7120; Q9967

== ENCOUNTER 2019-11-07 11:44 | Outpatient (CLI) | payer MEDICARE, OTHER ==
--- NOTE | 2019-11-07 12:40 | XRay Report ---
ABDOMEN SUPINE INDICATION / CLINICAL INFORMATION: Z95.828Presence of other vascular implants and grafts. COMPARISON: 05/25/2019 FINDINGS: IVC filter position is unchanged, with the superior tip of the filter projected over the superior end plate of L2. Normal bowel gas pattern. No obvious abnormal mass or calcification. Signer Name: Ezra Villafuerte MD Signed: 11/07/2019 12:36 PM Workstation Name: [id number]
== END 2019-11-07 11:45 | disposition home or self-care (01) ==
LOC: XRAY 11:44
PROVIDERS: ATTEND Radiology Diagnostic Radiology
DX: Z95.828 Presence of other vascular implants and grafts (principal)
CPT/HCPCS: 74018

== ENCOUNTER 2020-10-21 06:33 | Day surgery (SDC) | payer MEDICARE, OTHER ==
[2020-10-21] MEDS ORDERED: ASPIRIN EC 325 MG TAB PO ONE (08:00)
[2020-10-21] MEDS ORDERED: NITROGLYCERIN SYRINGE 0 ML ONE (08:08)
[2020-10-21 08:22] LABS: Basophils % (Auto) 0.6 % (0.0-1.8); Eosinophils # (Auto) 0.2 K/mm3 (0.0-0.4); Eosinophils % (Auto) 5.2 % (0.0-4.3); Hematocrit 38.2 % (35.5-45.6); Hemoglobin 13.2 gm/dl (11.8-15.2); Lymphocytes # (Auto) 1.5 K/mm3 (1.2-5.4); Lymphocytes % (Auto) 36.2 % (13.4-35.0); Mean Corpuscular HGB Conc 35 % (32-34); Mean Corpuscular Volume 95 fl (84-94); Monocytes # (Auto) 0.6 K/mm3 (0.0-0.8); Monocytes % (Auto) 13.4 % (0.0-7.3); Platelet Count 163 K/mm3 (140-440); Red Blood Count 4.04 M/mm3 (3.65-5.03); Red Cell Distribution Width 15.7 % (13.2-15.2)
[2020-10-21] MEDS: SODIUM CHLORIDE 0.9% 500 ML 500 ML IV SCH ×3 (08:25→10:55)
[2020-10-21 08:34] LABS: Partial Thromboplastin Time 25.7 Sec. (24.2-36.6)
[2020-10-21 08:40] LABS: BUN/Creatinine Ratio 26; Blood Urea Nitrogen 21 mg/dL (9-20); Calcium 9.4 mg/dL (8.4-10.2); Hemolysis Index 2
[2020-10-21] MEDS: VERAPAMIL 5 MG/2 ML INJ ONE ×2 (10:34→10:55)
[2020-10-21] MEDS: MIDAZOLAM 2 MG/2 ML INJ ONE ×2 (10:34→10:54)
[2020-10-21] MEDS: HEPARIN 10,000 UNITS/10 ML VIAL ONE ×2 (10:34→10:55)
[2020-10-21] MEDS: LIDOCAINE (2%) 20 MG/1 ML VIAL 20 ML MDV INFILTRATI ONE ×2 (10:34→10:54)
[2020-10-21] MEDS: fentaNYL 100 MCG/2 ML INJ ONE ×2 (10:34→10:54)
[2020-10-21] MEDS: HEPARIN/NS 5000 UNIT/500ML 1,000 ML IR ONE ×2 (10:36→10:55)
--- NOTE | 2020-10-21 11:30 | Cardiac Catherization Report ---
CARDIAC CATHETERIZATION REPORT REASON FOR PROCEDURE: Abnormal thallium stress test. PROCEDURES: 1. Left heart catheterization. 2. Selective left and right coronary angiography. 3. Left ventricular angiography. 4. Sedation time, start 10:54, end 11:06. I was present for the entire procedure and supervised the moderate sedation protocol. The patient was prepped and draped in a sterile fashion after informed consent. The right radial cath site was prepped and draped after a negative Tk's test. The right radial artery was entered using Seldinger technique followed by placement of a 6-English hydrophilic sheath. Routine radial cocktail was administered via the sheath. Nitroglycerin was not included as part of the radial cocktail due to the patient's recent use of Cialis within 48 hours of the cardiac catheterization procedure. Verapamil and heparin were administered in the attenuated radial cocktail. Selective left and right coronary angiography was performed using a #3.5 left Tiff, and a #4 right Tiff. The pigtail catheter was used for left ventricular angiography. FINDINGS: HEMODYNAMICS: Left ventricular end-diastolic pressure was 15, following coronary angiography. Ascending aortic pressure 152/64. There was no significant pressure gradient on pullback across the aortic valve. CORONARY ANGIOGRAPHY: The left main coronary artery was angiographically normal. Left anterior descending artery and its diagonal branches were angiographically normal. The circumflex artery and its obtuse marginal branches were angiographically normal. The circumflex artery was dominant. The right coronary artery was small, nondominant, and similarly free of significant disease. Left ventricle was normal in size. There was mild overall left ventricular systolic dysfunction with difficulty in optimal estimation of the ejection fraction due to excessive ventricular ectopy during contrast injection. The catheters and the sheaths were removed, hemostasis achieved using a TR band. The patient was returned to the postprocedure unit in stable condition. There were no complications. CONCLUSIONS: 1. Angiographically normal coronary arteries. 2. Mild left ventricular systolic dysfunction, estimated ejection fraction 45-50%, suboptimal ejection fraction estimation due to excessive ventricular ectopy during contrast injection. RECOMMENDATION: Risk factor modification and medical therapy, echocardiography for optimal left ventricular function assessment. JOB# [id number] CA/NTS
--- NOTE | 2020-10-21 13:36 | Discharge Summary ---
Short Stay Discharge Plan Activity: advance as tolerated Weight Bearing Status: Full Weight Bearing Diet: low fat, low cholesterol, low salt Wound: keep clean and dry Special Instructions: smoking cessation, no heavy lifting (3 days) Follow up with: BLANCO BENNETT MD [Staff Physician] - 7 Days GERSON SANTILLAN JR, MD [Primary Care Provider] - 7 Days [facility]: [facility] Instructions
[2020-10-21] MEDS ORDERED: SODIUM CHLORIDE 0.9% 1000 ML 1,000 ML IV SCH (13:45)
[2020-10-21] MEDS ORDERED: traMADol 50 MG TAB PO PRN (14:00)
[2020-10-21 14:13] VITALS: BP 122/58
== END 2020-10-21 14:45 | disposition home or self-care (01) ==
LOC: CATHLABREC 06:33
PROVIDERS: ATTEND Internal Medicine Cardiovascular Disease
DX: R94.39 Abnormal result of other cardiovascular function study (principal); E78.00 Pure hypercholesterolemia, unspecified; I48.91 Unspecified atrial fibrillation; K21.9 Gastro-esophageal reflux disease without esophagitis; M19.90 Unspecified osteoarthritis, unspecified site; E11.9 Type 2 diabetes mellitus without complications; F41.9 Anxiety disorder, unspecified; F32.9 Major depressive disorder, single episode, unspecified; Z88.8 Allergy status to other drugs, medicaments and biological substances; Z86.711 Personal history of pulmonary embolism; Z87.440 Personal history of urinary (tract) infections; Z79.899 Other long term (current) drug therapy; Z87.891 Personal history of nicotine dependence; Z98.890 Other specified postprocedural states
CPT/HCPCS: 36415; 80048; 85025; 85610; 85730; 93005; 93458; 99156; C1894; J1644; J2250; J3010; J7040; 96360; 96361; Q9967

== ENCOUNTER 2020-10-29 12:05 | Outpatient (CLI) | payer MEDICARE, OTHER ==
--- NOTE | 2020-10-29 13:19 | XRay Report ---
ABDOMEN 1 VIEW(S) INDICATION / CLINICAL INFORMATION: PRESENCE OF OTHER VASCULAR IMPLANTS AND GRAFTS. COMPARISON: 11/07/2019 FINDINGS: TUBES / LINES: None. BOWEL GAS PATTERN: No significant abnormality. FREE AIR / EXTRALUMINAL GAS: None seen. ADDITIONAL FINDINGS: IVC filter is located at the L2-3 level and appears unchanged since 11/07/2019 ex am. IMPRESSION: No significant abnormality. Signer Name: Omar Moreno Jr, MD Signed: 10/29/2020 1:14 PM Workstation Name: [id number]
== END 2020-10-29 12:06 | disposition home or self-care (01) ==
LOC: XRAY 12:05
PROVIDERS: ATTEND Radiology Diagnostic Radiology
DX: R10.9 Unspecified abdominal pain (principal); Z95.828 Presence of other vascular implants and grafts
CPT/HCPCS: 74018

== ENCOUNTER 2022-01-01 14:15 | Outpatient (CLI) | payer MEDICARE, OTHER ==
--- NOTE | 2022-01-01 15:44 | XRay Report ---
ABDOMEN 1 VIEW(S) INDICATION / CLINICAL INFORMATION: Z95.828 PRESENCE OF inferior vena cava filters. COMPARISON: None available. FINDINGS: TUBES / LINES: None. BOWEL GAS PATTERN: No significant abnormality. FREE AIR / EXTRALUMINAL GAS: None seen. ADDITIONAL FINDINGS: There is an IVC filter with its superior tip near the L2 superior endplate and i nferior tip near the mid body of L3. IMPRESSION: IVC filter as described. Signer Name: Omar Moreno Jr, MD Signed: 01/01/2022 3:40 PM Workstation Name: [id number]
== END 2022-01-01 14:16 | disposition home or self-care (01) ==
LOC: XRAY 14:15
PROVIDERS: ATTEND Radiology Diagnostic Radiology
DX: Z45.89 Encounter for adjustment and management of other implanted devices (principal); Z95.828 Presence of other vascular implants and grafts
CPT/HCPCS: 74018